=== PATIENT | female | born 1965 | race Caucasian/White ===

== ENCOUNTER 2016-10-16 06:37 | Emergency (ER) | payer OTHER ==
[~2016-10-16] VITALS: Ht 172.7 cm; Wt 55.0 kg
[~2016-10-16 06:37] MED LIST: ALBUAER3 INH; ZANT150T2 PO; ZYRT10CA PO
[2016-10-16 06:39] VITALS: BP 108/69; PULSE 98; RESP 18; TEMP 98.2; O2SAT 98
[2016-10-16 07:57] LABS: AUTOMATED NEUTROPHIL # 4.6 TH/MM3 (1.8-7.7); BASOPHIL % 0.1 % (0.0-2.0); EOSINOPHIL % 0.3 % (0.0-4.0); HEMO FLAGS DIFF FINAL; LYMPHOCYTE # 0.5 TH/MM3 (1.0-4.8); MEAN CORPUSCULAR HEMOGLOBIN 31.5 PG (27.0-34.0); MEAN CORPUSCULAR HGB CONC 35.4 % (32.0-36.0); MONO % 6.6 % (0.0-8.0); PLATELET COUNT 256 TH/MM3 (150-450); RED BLOOD COUNT 4.83 MIL/MM3 (4.00-5.30); RED CELL DISTRIBUTION WIDTH 13.5 % (11.6-17.2); WHITE BLOOD COUNT 5.5 TH/MM3 (4.0-11.0)
[2016-10-16 07:58] LABS: BLOOD, URINE TRACE (NEG); COMMENT (UR) CULT NOT INDICATED; CULTURE IF INDICATED CULT NOT INDICATED; GLUCOSE,URINE NEG (NEG); KETONE, URINE TRACE mg/dL (NEG); MUCUS URINE FEW /lpf (OCC); NITRITE,URINE NEG (NEG); SQUAMOUS EPITHELIAL CELL URINE <1 /hpf (0-5); URINE COLOR YELLOW (YELLW/STRAW)
[2016-10-16 08:08] LABS: BICARBONATE 28.7 MEQ/L (21.0-32.0); POTASSIUM 3.3 MEQ/L (3.5-5.1)
--- NOTE | 2016-10-16 08:09 | PD ---
HPI Chief Complaint: Abdominal Pain Time Seen by Provider: 07:32 Travel History International Travel<30 days: No Contact w/Intl Traveler<30days: No Traveled to known affect area: No History of Present Illness HPI The patient was seen and examined in the presence of the nurse. She complains of fever and left lower quadrant pain. Says that her temp was 102 at home yesterday. Duration of symptoms is 4 days. No vomiting or diarrhea or urinary complaints. She's had a total hysterectomy. No alleviating factors. Symptoms severity is moderate. No respiratory symptoms such as productive cough or runny nose PFSH Past Medical History Arthritis: Yes (spine, hands, knees) Asthma: Yes Autoimmune Disease: No Depression: Yes Heart Rhythm Problems: Yes (heart murmur) Cancer: No Cardiovascular Problems: Yes (PALPITATIONS AND A MURMUR) High Cholesterol: No Chest Pain: No Congestive Heart Failure: No COPD: No Cerebrovascular Accident: No Diabetes: No Diminished Hearing: No Endocrine: No Gastrointestinal Disorders: Yes (REFLUX, GASTROPORESIS) GERD: Yes Genitourinary: Yes Headaches: Yes Hepatitis: No Hiatal Hernia: Yes Immune Disorder: No Kidney Stones: Yes Medical other: Yes (UTERINE FIBROID TUMOR) Musculoskeletal: Yes (ARTHRITIS IN SPINE) Neurologic: Yes (GRAND MAL CHILD) Psychiatric: No Reproductive: No Respiratory: Yes (ASTHMA, ENVIRONMENTAL ALLERGIES) Migraines: No Renal Failure: No Seizures: Yes (childhood) Sleep Apnea: No Thyroid Disease: No Ulcer: No ?: Not : 2 Para: 2 Tubal Ligation: Yes Past Surgical History Abdominal Surgery: No AICD: No Body Medical Devices: NONE Cardiac Surgery: No Section: Yes Ear Surgery: No Endocrine Surgery: No Eye Surgery: No Genitourinary Surgery: Yes (URETERAL STENTS) Gynecologic Surgery: Yes (C SECTION, TL) Hysterectomy: Yes Joint Replacement: No Oral Surgery: No Pacemaker: No Thoracic Surgery: No Other Surgery: Yes ( 27 yrs ago, tubal ligation. ) Social History Alcohol Use: No Tobacco Use: No Substance Use: No Allergies-Medications (Allergen,Severity, Reaction): Coded Allergies: No Known Allergies (Verified , 10/16/16) Reported Meds & Prescriptions Reported Meds & Active Scripts Active Reported Zantac (Ranitidine HCl) 150 Mg Tab 150 Mg PO BID Proair Hfa 8.5 GM Inh (Albuterol Sulfate) 90 Mcg/Act Aer 1 Puff INH Q6H PRN 108 mcg/actuation Review of Systems General / Constitutional: Positive: Fever Eyes: No: Visual changes HENT: No: Headaches Cardiovascular: No: Chest Pain or Discomfort Respiratory: No: Shortness of Breath Gastrointestinal: Positive: Abdominal Pain Genitourinary: No: Dysuria Musculoskeletal: No: Pain Skin: No Rash Neurologic: No: Weakness Psychiatric: No: Depression Endocrine: No: Polydipsia Hematologic/Lymphatic: No: Easy Bruising Physical Exam Narrative GENERAL: Well-nourished, well-developed patient in no apparent distress. SKIN: Warm and dry. HEAD: Atraumatic. Normocephalic. EYES: Pupils equal and round. No scleral icterus. No injection or drainage. ENT: No nasal bleeding or discharge. Mucous membranes pink and moist. NECK: Trachea midline. No JVD. No meningeal signs CARDIOVASCULAR: Regular rate and rhythm. No murmur appreciated. RESPIRATORY: No accessory muscle use. Clear to auscultation. Breath sounds equal bilaterally. GASTROINTESTINAL: Abdomen soft, mild left lower quadrant tenderness without rebound or guarding, nondistended. Hepatic and splenic margins not palpable. MUSCULOSKELETAL: No obvious deformities. No clubbing. No cyanosis. No edema. NEUROLOGICAL: Awake and alert. No obvious cranial nerve deficits. Motor grossly within normal limits. Normal speech. PSYCHIATRIC: Appropriate mood and affect; insight and judgment normal. Data Data Last Documented VS Vital Signs Date Time Temp Pulse Resp B/P Pulse Ox O2 Delivery O2 Flow Rate FiO2 10/16/16 06:39 98.2 98 18 108/69 98 Orders Iv Access Insert/Monitor (10/16/16 07:32) Complete Blood Count With Diff (10/16/16 07:32) Basic Metabolic Panel (Bmp) (10/16/16 07:32) Urinalysis - C+S If Indicated (10/16/16 07:32) Labs Laboratory Tests Test 10/16/16 07:40 White Blood Count 5.5 TH/MM3 Red Blood Count 4.83 MIL/MM3 Hemoglobin 15.2 GM/DL Hematocrit 43.0 % Mean Corpuscular Volume 89.0 FL Mean Corpuscular Hemoglobin 31.5 PG Mean Corpuscular Hemoglobin 35.4 % Concent Red Cell Distribution Width 13.5 % Platelet Count 256 TH/MM3 Mean Platelet Volume 7.4 FL Neutrophils (%) (Auto) 84.0 % Lymphocytes (%) (Auto) 9.0 % Monocytes (%) (Auto) 6.6 % Eosinophils (%) (Auto) 0.3 % Basophils (%) (Auto) 0.1 % Neutrophils # (Auto) 4.6 TH/MM3 Lymphocytes # (Auto) 0.5 TH/MM3 Monocytes # (Auto) 0.4 TH/MM3 Eosinophils # (Auto) 0.0 TH/MM3 Basophils # (Auto) 0.0 TH/MM3 CBC Comment DIFF FINAL Differential Comment Urine Color YELLOW Urine Turbidity HAZY Urine pH 7.0 Urine Specific [place] 1.017 Urine Protein TRACE mg/dL Urine Glucose (UA) NEG mg/dL Urine Ketones TRACE mg/dL Urine Occult Blood TRACE Urine Nitrite NEG Urine Bilirubin NEG Urine Urobilinogen 2.0 MG/DL Urine Leukocyte Esterase NEG Urine RBC 4 /hpf Urine WBC 1 /hpf Urine Squamous Epithelial <1 /hpf Cells Urine Amorphous Sediment FEW Urine Mucus FEW /lpf Microscopic Urinalysis Comment CULT NOT INDICATED Sodium Level 138 MEQ/L Potassium Level 3.3 MEQ/L Chloride Level 103 MEQ/L Carbon Dioxide Level 28.7 MEQ/L Anion Gap 6 MEQ/L Blood Urea Nitrogen 14 MG/DL Creatinine 0.78 MG/DL Estimat Glomerular Filtration 78 ML/MIN Rate Random Glucose 141 MG/DL Calcium Level 9.0 MG/DL [facility] Medical Decision Making Medical Screen Exam Complete: Yes Emergency Medical Condition: Yes Medical Record Reviewed: Yes Differential Diagnosis Diverticulitis, colitis, gastroenteritis Narrative Course I have reviewed the patient's electronic medical record. IV placed CBC is normal Metabolic profile is normal Urinalysis is clean Symptoms seem mild at this time. Since she has no ovaries or uterus and has left lower quadrant discomfort fever I'm suspecting she has diverticulitis We discussed risks and benefits of CT imaging Given her normal labs and benign presentation going to initiate treatment for diverticulitis. If she doesn't improve in a few days she will return for reevaluation and imaging The patient was advised to follow up with their physician and return if they worsen. The patient was warned about potential sedation for the medications they will receive on prescription. Diagnosis Primary Impression: Abdominal pain Qualified Code: R10.32 - Left lower quadrant pain Additional Impression: Fever Qualified Code: R50.9 - Fever, unspecified fever cause Additional Instructions: The patient was advised to follow up with their physician and return if they worsen. The patient was warned about potential sedation for the medications they will receive on prescription. Med/Other Pt SpecificInfo: Prescription(s) given Scripts Tramadol 50 Mg Tab50 Mg PO Q6H PRN (PAIN) #20 TAB Ref 0 Prov:Balbir Elliott MD 10/16/16 Ondansetron (Zofran)4 Mg Tab4 Mg PO Q6HR PRN (NAUSEA OR VOMITING) #12 TAB Ref 0 Prov:Balbir Elliott MD 10/16/16 Metronidazole (Flagyl)500 Mg [id number] Mg PO QID 7 Days Ref 0 Prov:Balbir Elliott MD 10/16/16 Ciprofloxacin (Cipro)500 Mg [id number] Mg PO BID #14 TAB Ref 0 Prov:Balbir Elliott MD 10/16/16 Disposition: 01 DISCHARGE HOME Condition: Stable Balbir Elliott MD Oct 16, 2016 08:09
[2016-10-16] MEDS ORDERED: ZOFR4TAB PO (10:35)
[2016-10-16] MEDS ORDERED: TRAM50TA PO (10:35)
[2016-10-16] MEDS ORDERED: CIPR-9 PO (10:35)
[2016-10-16] MEDS ORDERED: METR-1 PO (10:35)
== END 2016-10-16 11:08 | disposition home or self-care (01) ==
LOC: NEPE 06:37
DX: R10.32 Left lower quadrant pain (principal); R50.9 Fever, unspecified
CPT/HCPCS: 80048; 81001; 85025; 99284